=== PATIENT | male | born 1975 | race Caucasian/White ===

== ENCOUNTER 2019-07-06 11:49 | Emergency (ER) | payer OTHER ==
[~2019-07-06] VITALS: Ht 170.2 cm; Wt 82.6 kg
--- NOTE | 2019-07-06 12:05 | NUR ---
PT AMBULATORY TO ER BED 01 C/O LOWER ABDOMINAL PAIN SINCE LAST NIGHT. PT DENIES N/V/D. ALSO C/O ON AND OFF PENILE PAIN THAT STARTED YESTERDAY. DENIES ANY OTHER COMPLAINT AT THIS TIME . AWAITING MD MARRUFO.
--- NOTE | 2019-07-06 12:34 | NUR ---
DR MCCALLUM AT BEDSIDE FOR EVAL.
[2019-07-06] MEDS: IV NS 0.9% 1,000 ML BAG IV ONE ×2 (12:51→13:39)
[2019-07-06 12:57] LABS: APPEARANCE,URINE Clear (CLEAR); BILIRUBIN,URINE Negative (NEGATIVE); BLOOD, URINE Large Ery/uL (NEGATIVE); COLOR,URINE Yellow (YELLOW); KETONES,URINE Negative (NEGATIVE); LEUKOCYTE ESTERASE ,URINE Negative (NEGATIVE); NITRITE, URINE Negative (NEGATIVE); PROTEIN,URINE 30 mg/dl (NEGATIVE); UGLUCOSE Negative (NEGATIVE); UROBILINOGEN,URINE 0.2 EU/dL (0.2)
[2019-07-06 12:59] LABS: BASOPHILS # (AUTO) 0.2 /CMM (0.0-0.2); BASOPHILS % (AUTO) 3.3 % (0.0-2.0); EOSINOPHILS % (AUTO) 1.9 % (0.0-6.0); HEMATOCRIT 49 % (39-51); LYMPHOCYTES # (AUTO) 0.8 /CMM (0.8-4.8); LYMPHOCYTES % (AUTO) 10.4 % (20.0-44.0); MEAN CORPUSCULAR HGB CONC 35 g/dl (31.0-36.0); MEAN CORPUSCULAR VOLUME 90 fL (80-96); MONOCYTES # (AUTO) 0.7 /CMM (0.1-1.30); NEUTROPHILS # (AUTO) 5.7 /CMM (1.8-8.9); NEUTROPHILS % (AUTO) 75.4 % (43.0-81.0); PLATELET COUNT (AUTO) 217 /CMM (150-450); RED BLOOD CELL COUNT(AUTO) 5.48 MIL/uL (4.5-6.0); WHITE BLOOD COUNT (AUTO) 7.6 K/uL (4.3-11.0)
--- NOTE | 2019-07-06 13:00 | NUR ---
PT TO RADIOLOGY FOR ABDOMINAL CT SCAN VIA [facility].
[2019-07-06 13:02] LABS: CALCIUM, SERUM 9.5 mg/dL (8.5-10.1); CREATININE 1.2 mg/dL (0.6-1.3); POTASSIUM 3.5 mmol/L (3.5-5.1)
[2019-07-06 13:03] LABS: BACTERIA,URINE Few /HPF (None Seen); SQUAMOUS EPITHELIAL CELL,UR Rare /HPF (None Seen)
[2019-07-06 13:08] LABS: ALBUMIN 4.2 g/dL (3.4-5.0); BILIRUBIN,TOTAL 0.4 mg/dL (0.2-1.0); TOTAL PROTEIN, SERUM 7.8 g/dL (6.4-8.2)
[2019-07-06] MEDS ORDERED: KETOROLAC TROMETHAMINE 15 MG/ML VIAL ONE (13:31)
[2019-07-06] MEDS ORDERED: FENTANYL PF 100MCG/2ML AMPUL ONE (13:32)
[2019-07-06] MEDS: FENTANYL PF 100MCG/2ML AMPUL IV ONE (13:36)
[2019-07-06] MEDS: KETOROLAC TROMETHAMINE INJ 30 MG/ML VIAL IV ONE (13:36)
[2019-07-06] MEDS ORDERED: CEFTRIAXONE 1GM BAG (ER ONLY) 50 ML IV ONE (13:37)
[2019-07-06] MEDS: CEFTRIAXONE 1GM BAG (ER ONLY) 1 GM/50 ML PIGGYBACK IV ONE (13:38)
[2019-07-06 14:26] VITALS: BP 128/94
--- NOTE | 2019-07-06 14:26 | NUR ---
Patient discharged to home in stable condition. Written and verbal after care instructions given. Patient verbalizes understanding of instruction.IV removed. Catheter intact and site benign. Pressure and 4x4 applied to site. No bleeding noted.
== END 2019-07-06 14:27 | disposition home or self-care (01) ==
LOC: ER 11:52
DX: N13.2 Hydronephrosis with renal and ureteral calculous obstruction (principal); N39.0 Urinary tract infection, site not specified; Z98.890 Other specified postprocedural states
CPT/HCPCS: 36415; 74176; 80048; 80076; 81001; 83690; 85025; 96365; 96375; 99284; J0696; J1885; J3010; J7030 ×2; 81000-TC

== ENCOUNTER 2020-02-17 14:59 | Emergency (ER) | payer OTHER ==
[~2020-02-17] VITALS: Ht 170.2 cm; Wt 7.7 kg
[2020-02-17 15:13] VITALS: BP 128/81
== END 2020-02-17 16:37 | disposition home or self-care (01) ==
LOC: ER 15:06
DX: U07.1 COVID-19 (principal); R43.8 Other disturbances of smell and taste
CPT/HCPCS: 99283; C9803; U0003

== ENCOUNTER 2020-11-14 19:21 | Emergency (ER) | payer SELFPAY ==
[~2020-11-14] VITALS: Ht 170.2 cm; Wt 83.9 kg
--- NOTE | 2020-11-14 20:42 | NUR ---
Pt peter c/o rt calf pain x2 months. Pt states that the pain is positional, but worse when laying down. Pt has been taking tylennol for pain relief, but pain has not stopped. Per pt, he was already tested for DVT and he did not have one. Pt has full ROM in leg. JAY Osei at bedside. Pt attached to monitor and pox. [place] and call light within reach
--- NOTE | 2020-11-14 21:38 | NUR ---
us at bedside
[2020-11-14] MEDS ORDERED: IBUP-1955 PO (21:49)
--- NOTE | 2020-11-14 22:00 | NUR ---
Patient discharged to home in stable condition. Written and verbal after care instructions given. Patient verbalizes understanding of instruction. Pt ambulatory with a steady gait
[2020-11-14 22:04] VITALS: BP 126/87
== END 2020-11-14 22:00 | disposition home or self-care (01) ==
LOC: ER 19:24
DX: M79.661 Pain in right lower leg (principal); Z87.442 Personal history of urinary calculi; Z98.890 Other specified postprocedural states; Z60.2 Problems related to living alone; Z79.899 Other long term (current) drug therapy
CPT/HCPCS: 93971-TC

== ENCOUNTER 2021-08-08 18:53 | Emergency (ER) | payer OTHER ==
[~2021-08-08] VITALS: Ht 172.7 cm; Wt 86.2 kg
[~2021-08-08 18:53] MED LIST: IBUP-1955 PO
[2021-08-08 19:50] VITALS: BP 121/83
[2021-08-08] MEDS ORDERED: KETOROLAC TROMETHAMINE INJ 30 MG/ML VIAL ONE (20:27)
[2021-08-08] MEDS ORDERED: KETOROLAC TROMETHAMINE INJ 60 MG/2 ML VIAL IM ONE (20:30)
--- NOTE | 2021-08-08 20:53 | NUR ---
Patient discharged to home in stable condition. Written and verbal after care instructions given. Patient verbalizes understanding of instruction.
[2021-08-08] MEDS ORDERED: NAPR-1009 PO (21:02)
== END 2021-08-08 21:08 | disposition home or self-care (01) ==
LOC: ER 20:00
DX: G56.02 Carpal tunnel syndrome, left upper limb (principal); G62.9 Polyneuropathy, unspecified; M79.621 Pain in right upper arm; B02.9 Zoster without complications; Z98.890 Other specified postprocedural states; Z60.2 Problems related to living alone
CPT/HCPCS: 96372; 99283; J1885

== ENCOUNTER 2021-09-18 21:33 | Emergency (ER) | payer OTHER ==
[~2021-09-18] VITALS: Ht 172.7 cm; Wt 86.2 kg
[~2021-09-18 21:33] MED LIST changes: +NAPR-1009 PO
--- NOTE | 2021-09-18 23:09 | NUR ---
PATIENT BIBSELF C/O RIGHT SIDED ABD PAIN RAD TO R FLANK S/P DINNER AND FELT DIZZY. PATIENT IS A/O X 4, RR EVEN AND UNLABORED, NO SOB NOTED. PATIENT TAKEN TO ER BED 14. PATIENT CONNECTED TO MONITORS.
[2021-09-18] MEDS ORDERED: KETOROLAC TROMETHAMINE INJ 30 MG/ML VIAL ONE (23:27)
[2021-09-18] MEDS ORDERED: ONDANSETRON HCL/PF 4 MG/2 ML VIAL ONE (23:27)
--- NOTE | 2021-09-18 23:28 | NUR ---
PT RETURNED FROM CT SCAN
[2021-09-18] MEDS ORDERED: ONDANSETRON HCL/PF 4 MG/2 ML VIAL IVP ONE (23:30)
[2021-09-18] MEDS ORDERED: KETOROLAC TROMETHAMINE INJ 30 MG/ML VIAL IV ONE (23:30)
[2021-09-18] MEDS ORDERED: IV NS 0.9% 1,000 ML BAG IV ONE (23:30)
--- NOTE | 2021-09-18 23:40 | NUR ---
20g IV LINE ESTABLISHED AT [facility]. BLOOD DRAWN AND SENT TO LAB.
[2021-09-18 23:41] LABS: BILIRUBIN,URINE NEGATIVE (NEGATIVE); COLOR,URINE YELLOW (YELLOW); LEUKOCYTE ESTERASE ,URINE NEGATIVE (NEGATIVE); NITRITE, URINE NEGATIVE (NEGATIVE); PROTEIN,URINE NEGATIVE (NEGATIVE); UGLUCOSE NEGATIVE (NEGATIVE); UROBILINOGEN,URINE 0.2 EU/dL (0.2)
[2021-09-18 23:47] LABS: BACTERIA,URINE Rare /HPF (None Seen); MUCUS,URINE Moderate /LPF (None Seen); SQUAMOUS EPITHELIAL CELL,UR Rare /HPF (None Seen); WBC,URINE 0-2 /HPF (0-3)
[2021-09-19 00:02] LABS: BASOPHILS # (AUTO) 0.1 K/uL (0.0-0.2); BASOPHILS % (AUTO) 0.7 % (0.0-2.0); EOSINOPHILS % (AUTO) 0.8 % (0.0-6.0); HEMATOCRIT 43 % (39-51); LYMPHOCYTES # (AUTO) 1.2 K/uL (0.8-4.8); LYMPHOCYTES % (AUTO) 13.2 % (20.0-44.0); MEAN CORPUSCULAR HGB CONC 35 g/dl (31.0-36.0); MEAN CORPUSCULAR VOLUME 88 fL (80-96); MONOCYTES # (AUTO) 0.7 K/uL (0.1-1.30); MONOCYTES % (AUTO) 7.8 % (2.0-12.0); NEUTROPHILS % (AUTO) 77.5 % (43.0-81.0); PLATELET COUNT (AUTO) 204 K/uL (150-450); RED BLOOD CELL COUNT(AUTO) 4.88 MIL/uL (4.5-6.0)
[2021-09-19 00:09] LABS: CREATININE 0.8 mg/dL (0.6-1.3); POTASSIUM 4.4 mmol/L (3.5-5.1)
[2021-09-19 00:15] LABS: BILIRUBIN,DIRECT 0.1 mg/dL (0.0-0.2); BILIRUBIN,TOTAL 0.2 mg/dL (0.2-1.0); TOTAL PROTEIN, SERUM 7.1 g/dL (6.4-8.2)
[2021-09-19] MEDS ORDERED: HYDR-4275 PO (01:16)
[2021-09-19] MEDS ORDERED: IBUP-1957 PO (01:16)
[2021-09-19] MEDS ORDERED: TAMS-12 PO (01:16)
--- NOTE | 2021-09-19 01:26 | NUR ---
Patient discharged to home in stable condition. Written and verbal after care instructions given. Patient verbalizes understanding of instruction.
--- NOTE | 2021-09-19 01:26 | NUR ---
IV CANNULA REMOVED
[2021-09-19 01:45] VITALS: BP 146/79
[2021-09-19] MEDS ORDERED: HYDR-4209 PO (02:19)
== END 2021-09-19 01:30 | disposition home or self-care (01) ==
LOC: ER 21:34
DX: N20.0 Calculus of kidney (principal); N23 Unspecified renal colic; Z86.16 Personal history of COVID-19; Z87.442 Personal history of urinary calculi; Z60.2 Problems related to living alone; Z79.899 Other long term (current) drug therapy
CPT/HCPCS: 36415; 74176; 76705; 80048; 80076; 81001; 83690; 85025; 85730; 96361; 96374; 96375; 99284; J1885; J2405; J7030

== ENCOUNTER 2021-12-23 04:51 | Emergency (ER) | payer OTHER ==
[~2021-12-23] VITALS: Ht 177.8 cm; Wt 86.2 kg
[~2021-12-23 04:51] MED LIST changes: +HYDR-4209 PO; +IBUP-1957 PO; +TAMS-12 PO
--- NOTE | 2021-12-23 05:20 | NUR ---
PT BIBS FOR C/O OF SUPRAPUBIC/LOWER ABD PAIN SINCE MIDNIGHT. PT HAS HX OF KIDNEY STONE IN LAST SEPTEMBER AND STATES HE WAS ABLE TO PASS THE STONE. PT AWAKE AND ALERT X4 BREATHING EVEN AND UNLABORED. PLACED ON MONITOR AND V/S WNL.
--- NOTE | 2021-12-23 05:23 | NUR ---
urine collected and sent to lab
[2021-12-23 05:39] LABS: BILIRUBIN,URINE SMALL (NEGATIVE); COLOR,URINE YELLOW (YELLOW); LEUKOCYTE ESTERASE ,URINE NEGATIVE (NEGATIVE); NITRITE, URINE NEGATIVE (NEGATIVE); PROTEIN,URINE NEGATIVE (NEGATIVE); UGLUCOSE NEGATIVE (NEGATIVE); UROBILINOGEN,URINE 0.2 EU/dL (0.2)
[2021-12-23 05:44] LABS: BASOPHILS # (AUTO) 0.1 K/uL (0.0-0.2); BASOPHILS % (AUTO) 0.8 % (0.0-2.0); EOSINOPHILS % (AUTO) 3.2 % (0.0-6.0); HEMATOCRIT 45 % (39-51); HEMOGLOBIN 15.6 g/dL (13.5-17.5); LYMPHOCYTES # (AUTO) 2.9 K/uL (0.8-4.8); LYMPHOCYTES % (AUTO) 34.3 % (20.0-44.0); MEAN CORPUSCULAR HGB CONC 35 g/dl (31.0-36.0); MEAN CORPUSCULAR VOLUME 88 fL (80-96); MONOCYTES # (AUTO) 0.8 K/uL (0.1-1.30); MONOCYTES % (AUTO) 9.4 % (2.0-12.0); NEUTROPHILS # (AUTO) 4.4 K/uL (1.8-8.9); NEUTROPHILS % (AUTO) 52.3 % (43.0-81.0); PLATELET COUNT (AUTO) 235 K/uL (150-450); RED BLOOD CELL COUNT(AUTO) 5.12 MIL/uL (4.5-6.0); WHITE BLOOD COUNT (AUTO) 8.5 K/uL (4.3-11.0)
[2021-12-23 05:54] LABS: CALCIUM, SERUM 9.3 mg/dL (8.5-10.1); POTASSIUM 3.5 mmol/L (3.5-5.1)
[2021-12-23] MEDS ORDERED: MORPHINE SULFATE INJ 2 MG/ML DISP.SYRIN IV ONE (06:30)
[2021-12-23] MEDS ORDERED: KETOROLAC TROMETHAMINE INJ 30 MG/ML VIAL IV ONE (06:30)
[2021-12-23] MEDS ORDERED: ONDANSETRON HCL/PF 4 MG/2 ML VIAL IVP ONE (06:30)
[2021-12-23] MEDS ORDERED: KETOROLAC TROMETHAMINE INJ 30 MG/ML VIAL ONE (06:35)
[2021-12-23] MEDS ORDERED: MORPHINE SULFATE INJ 4 MG/ML DISP.SYRIN ONE (06:35)
[2021-12-23] MEDS ORDERED: ONDANSETRON HCL/PF 4 MG/2 ML VIAL ONE (06:35)
--- NOTE | 2021-12-23 06:45 | NUR ---
20G IV ESTABLISHED AT [facility]. SALINE LOCKED.
[2021-12-23] MEDS ORDERED: TAMSULOSIN 0.4 MG CAP.SR.24H PO ONE (07:30)
[2021-12-23 07:46] LABS: RBC,URINE TOO NUMEROUS TO COUN /HPF (0-2); WBC,URINE 0-2 /HPF (0-3)
[2021-12-23 07:47] LABS: BACTERIA,URINE Rare /HPF (None Seen); CALCIUM OXALATE CRYSTALS,UR Few /HPF (None Seen); SQUAMOUS EPITHELIAL CELL,UR Few /HPF (None Seen)
[2021-12-23] MEDS ORDERED: TAMSULOSIN 0.4 MG CAP.SR.24H ONE (08:04)
[2021-12-23] MEDS ORDERED: HYDR-3972 PO (08:17)
[2021-12-23] MEDS ORDERED: IBUP-1957 PO (08:17)
[2021-12-23] MEDS ORDERED: TAMS-12 PO (08:17)
[2021-12-23 08:53] VITALS: BP 110/65
--- NOTE | 2021-12-23 08:53 | NUR ---
Patient discharged to home in stable condition. Written and verbal after care instructions given. Patient verbalizes understanding of instruction.
--- NOTE | 2021-12-23 08:54 | NUR ---
IV removed. Catheter intact and site benign. Pressure and 4x4 applied to site. No bleeding noted.
== END 2021-12-23 08:53 | disposition home or self-care (01) ==
LOC: ER 04:53
DX: N23 Unspecified renal colic (principal); N20.0 Calculus of kidney; Z87.442 Personal history of urinary calculi; Z86.16 Personal history of COVID-19; Z60.2 Problems related to living alone; Z79.899 Other long term (current) drug therapy
CPT/HCPCS: 99284; 74176; 96374; 96375; 85025; 80048; 81001; 36415; J2270; J1885; J2405

== ENCOUNTER 2022-04-14 19:39 | Emergency (ER) | payer OTHER ==
[~2022-04-14] VITALS: Ht 172.7 cm; Wt 88.5 kg
[~2022-04-14 19:39] MED LIST changes: +HYDR-3972 PO
--- NOTE | 2022-04-14 21:00 | NUR ---
URINE COLLECTED AND SENT TO LAB
--- NOTE | 2022-04-14 21:08 | NUR ---
SENIOR [employer]ET COORDINATOR AT PT'S BEDSIDE
[2022-04-14 21:31] LABS: BASOPHILS # (AUTO) 0.1 K/uL (0.0-0.2); BASOPHILS % (AUTO) 0.8 % (0.0-2.0); EOSINOPHILS % (AUTO) 2.8 % (0.0-6.0); HEMATOCRIT 48 % (39-51); HEMOGLOBIN 16.4 g/dL (13.5-17.5); LYMPHOCYTES # (AUTO) 3.3 K/uL (0.8-4.8); LYMPHOCYTES % (AUTO) 28.7 % (20.0-44.0); MEAN CORPUSCULAR HGB CONC 34 g/dl (31.0-36.0); MEAN CORPUSCULAR VOLUME 90 fL (80-96); MONOCYTES # (AUTO) 1.1 K/uL (0.1-1.30); MONOCYTES % (AUTO) 9.3 % (2.0-12.0); NEUTROPHILS # (AUTO) 6.7 K/uL (1.8-8.9); NEUTROPHILS % (AUTO) 58.4 % (43.0-81.0); PLATELET COUNT (AUTO) 269 K/uL (150-450); RED BLOOD CELL COUNT(AUTO) 5.38 MIL/uL (4.5-6.0); WHITE BLOOD COUNT (AUTO) 11.4 K/uL (4.3-11.0)
--- NOTE | 2022-04-14 21:38 | NUR ---
PT RETURNED TO ER BED [address]
[2022-04-14 22:09] LABS: BILIRUBIN,TOTAL 0.2 mg/dL (0.2-1.0); CALCIUM, SERUM 9.2 mg/dL (8.5-10.1); CREATININE 1.1 mg/dL (0.6-1.3); POTASSIUM 3.9 mmol/L (3.5-5.1); TOTAL PROTEIN, SERUM 7.5 g/dL (6.4-8.2)
[2022-04-14 22:41] LABS: BILIRUBIN,URINE NEGATIVE (NEGATIVE); COLOR,URINE YELLOW (YELLOW); LEUKOCYTE ESTERASE ,URINE NEGATIVE (NEGATIVE); NITRITE, URINE NEGATIVE (NEGATIVE); PROTEIN,URINE TRACE mg/dl (NEGATIVE); UGLUCOSE NEGATIVE (NEGATIVE); UROBILINOGEN,URINE 0.2 EU/dL (0.2)
[2022-04-14 23:14] LABS: RBC,URINE 51-80 /HPF (0-2); WBC,URINE 0-2 /HPF (0-3)
[2022-04-14 23:15] LABS: BACTERIA,URINE Rare /HPF (None Seen); SQUAMOUS EPITHELIAL CELL,UR Rare /HPF (None Seen)
[2022-04-14] MEDS ORDERED: NAPR-1192 PO (23:15)
--- NOTE | 2022-04-14 23:40 | NUR ---
Patient discharged to home in stable condition. Written and verbal after care instructions given. Patient verbalizes understanding of instruction.
[2022-04-14 23:41] VITALS: BP 138/88
== END 2022-04-14 23:42 | disposition home or self-care (01) ==
LOC: ER 19:41
DX: N13.2 Hydronephrosis with renal and ureteral calculous obstruction (principal); R10.9 Unspecified abdominal pain; Z86.16 Personal history of COVID-19; Z98.890 Other specified postprocedural states; Z60.2 Problems related to living alone; Z79.899 Other long term (current) drug therapy
CPT/HCPCS: 36415; 80048-TC; 80076-TC; 81001; 85025-TC; 87086-TC

== ENCOUNTER 2022-11-05 22:23 | Emergency (ER) | payer OTHER ==
[~2022-11-05] VITALS: Ht 172.7 cm; Wt 88.5 kg
[~2022-11-05 22:23] MED LIST changes: +NAPR-1192 PO
[2022-11-05 23:46] VITALS: BP 117/73; TEMP 97.8; O2SAT 98
[2022-11-06] MEDS ORDERED: IBUPROFEN 400 MG TABLET PO ONE (01:00)
[2022-11-06] MEDS ORDERED: IBUPROFEN 400 MG TABLET ONE (01:01)
[2022-11-06] MEDS ORDERED: IBUP-1957 PO (01:06)
== END 2022-11-06 01:10 | disposition home or self-care (01) ==
LOC: ER 22:30
DX: M79.18 Myalgia, other site (principal); Z86.16 Personal history of COVID-19; Z98.890 Other specified postprocedural states; Z79.899 Other long term (current) drug therapy; Z60.2 Problems related to living alone
CPT/HCPCS: 73080-TC

== ENCOUNTER 2023-03-18 21:02 | Emergency (ER) | payer SELFPAY ==
[~2023-03-18] VITALS: Ht 172.7 cm; Wt 86.2 kg
[2023-03-18] MEDS ORDERED: ACETAMINOPHEN ES 500 MG TABLET ONE (22:26)
[2023-03-18] MEDS ORDERED: ACETAMINOPHEN ES 500 MG TABLET PO ONE (22:30)
[2023-03-19 00:23] VITALS: BP 139/87; TEMP 98.4; O2SAT 97
== END 2023-03-19 00:24 | disposition home or self-care (01) ==
LOC: ER 21:10
DX: S09.8XXA Other specified injuries of head, initial encounter (principal); Z79.899 Other long term (current) drug therapy; Z98.890 Other specified postprocedural states; Z60.2 Problems related to living alone; Y04.8XXA Assault by other bodily force, initial encounter; Y93.89 Activity, other specified; Y92.89 Other specified places as the place of occurrence of the external cause; Y99.8 Other external cause status
CPT/HCPCS: 70450-TC; 70486-TC

== ENCOUNTER 2023-05-26 09:18 | Emergency (ER) | payer OTHER ==
[~2023-05-26] VITALS: Ht 172.7 cm; Wt 90.7 kg
[2023-05-26] MEDS ORDERED: ONDANSETRON HCL/PF 4 MG/2 ML VIAL ONE (09:57)
[2023-05-26] MEDS ORDERED: FAMOTIDINE/PF INJ 20 MG/2 ML VIAL IV ONE (09:58)
[2023-05-26] MEDS ORDERED: LIDOCAINE VISCOUS 2% UD 15 ML UDC ONE (09:58)
[2023-05-26] MEDS ORDERED: MAG HYDROX/AL HYDROX/SIMETH 30 ML UDC ONE (09:58)
[2023-05-26] MEDS: FAMOTIDINE/PF INJ 20 MG/2 ML VIAL IV ONE (10:00)
[2023-05-26] MEDS: MAG HYDROX/AL HYDROX/SIMETH 30 ML UDC PO ONE (10:00)
[2023-05-26] MEDS: ONDANSETRON HCL/PF 4 MG/2 ML VIAL IVP ONE (10:00)
[2023-05-26] MEDS: IV NS 0.9% 1,000 ML BAG IV ONE (10:00)
[2023-05-26] MEDS: LIDOCAINE VISCOUS 2% UD 15 ML UDC MM ONE (10:00)
[2023-05-26 10:37] LABS: BASOPHILS % (AUTO) 0.2 % (0.0-2.0); EOSINOPHILS % (AUTO) 0.3 % (0.0-6.0); HEMATOCRIT 43 % (39-51); HEMOGLOBIN 14.7 g/dL (13.5-17.5); LYMPHOCYTES # (AUTO) 1.1 K/uL (0.8-4.8); LYMPHOCYTES % (AUTO) 11.1 % (20.0-44.0); MEAN CORPUSCULAR HEMOGLOBIN 30 PG (26.0-33.0); MEAN CORPUSCULAR HGB CONC 34 g/dl (31.0-36.0); MEAN CORPUSCULAR VOLUME 88 fL (80-96); MONOCYTES # (AUTO) 1.3 K/uL (0.1-1.30); MONOCYTES % (AUTO) 13.4 % (2.0-12.0); NEUTROPHILS # (AUTO) 7.3 K/uL (1.8-8.9); PLATELET COUNT (AUTO) 209 K/uL (150-450); RED BLOOD CELL COUNT(AUTO) 4.85 MIL/uL (4.5-6.0); RED CELL DISTRIBUTION WIDTH 13.2 % (11.5-15.0); WHITE BLOOD COUNT (AUTO) 9.7 K/uL (4.3-11.0)
[2023-05-26] MEDS ORDERED: ONDA4TAB5 PO (10:44)
[2023-05-26] MEDS ORDERED: FAMO-131 PO (10:44)
[2023-05-26 10:49] LABS: CARBON DIOXIDE 24 mmol/L (21-32); CHLORIDE 101 mmol/L (98-107); CREATININE 0.8 mg/dL (0.6-1.3); GLUCOSE 109 mg/dL (74-106); POTASSIUM 3.9 mmol/L (3.5-5.1); SODIUM SERUM 136 mmol/L (136-145); UREA NITROGEN, BLOOD 34 mg/dL (7-18)
[2023-05-26 10:54] LABS: ALANINE AMINOTRANSFERASE 30 U/L (12-78); ALBUMIN 3.4 g/dL (3.4-5.0); ALKALINE PHOSPHATASE 85 U/L (46-116); ASPARTATE AMINOTRANSFERASE 17 U/L (15-37); BILIRUBIN,DIRECT 0.1 mg/dL (0.0-0.2); BILIRUBIN,TOTAL 0.5 mg/dL (0.2-1.0); LIPASE 17 U/L (16-77); TOTAL PROTEIN, SERUM 6.8 g/dL (6.4-8.2)
[2023-05-26 11:16] LABS: OCCULT BLOOD STOOL POSITIVE (NEGATIVE)
[2023-05-26 11:17] LABS: APPEARANCE,URINE CLEAR (CLEAR); BILIRUBIN,URINE NEGATIVE (NEGATIVE); BLOOD, URINE NEGATIVE Ery/uL (NEGATIVE); COLOR,URINE YELLOW (YELLOW); KETONES,URINE NEGATIVE (NEGATIVE); LEUKOCYTE ESTERASE ,URINE NEGATIVE (NEGATIVE); NITRITE, URINE NEGATIVE (NEGATIVE); PH,URINE 6.5 (5.0-8.0); PROTEIN,URINE NEGATIVE (NEGATIVE); UGLUCOSE NEGATIVE (NEGATIVE); UROBILINOGEN,URINE 0.2 EU/dL (0.2)
[2023-05-26 12:09] VITALS: BP 131/81; TEMP 97.8; O2SAT 99
== END 2023-05-26 12:10 | disposition home or self-care (01) ==
LOC: ER 09:25
DX: K92.2 Gastrointestinal hemorrhage, unspecified (principal); R11.2 Nausea with vomiting, unspecified; R19.7 Diarrhea, unspecified; Z86.16 Personal history of COVID-19; Z87.442 Personal history of urinary calculi; Z60.2 Problems related to living alone; Z79.899 Other long term (current) drug therapy
CPT/HCPCS: 99285; 96374; 71045; 96361; 96375; 93005; 85025; 80048; 83690; 80076; 82272; 81003; 36415; 84484; J3490; J2405; J7030